=== PATIENT | male | born 1960 | race Two or more races ===

== ENCOUNTER 2020-10-18 09:22 | Emergency (ER) | payer BC, OTHER ==
[~2020-10-18] VITALS: Ht 185.4 cm; Wt 83.9 kg
[2020-10-18 10:13] VITALS: BP 130/88
== END 2020-10-18 11:07 | disposition home or self-care (01) ==
LOC: ER 09:22
DX: U07.1 COVID-19 (principal); E11.9 Type 2 diabetes mellitus without complications; I10 Essential (primary) hypertension

== ENCOUNTER 2024-07-01 12:17 | Emergency (ER) | payer BC ==
[~2024-07-01] VITALS: Ht 182.9 cm; Wt 72.0 kg
[2024-07-01] MEDS: SODIUM CHLORIDE 0.9% 1,000 ML IV ONE (12:30)
[2024-07-01 13:02] LABS: Basophils # (auto) 0.1 10 ^3/uL (0-0.2); Eosinophils # (auto) 0.2 10 ^3/uL (0-0.8); Eosinophils % (auto) 3.1 % (0.0-7.0); Hematocrit 38.9 % (41.0-53.0); Hemoglobin 13.6 g/dL (13.5-17.5); Lymphocytes # (auto) 1.1 10 ^3/uL (0.4-5.4); Lymphocytes % (auto) 18.5 % (10.0-50.0); Mean Corpuscular Hemoglobin 32.4 pg (28.0-32.0); Mean Corpuscular Hgb Conc. 34.9 g/dL (32.0-36.0); Mean Corpuscular Volume 92.7 fL (80.0-100.0); Monocytes # (auto) 0.4 10 ^3/uL (0-1.3); Neutrophils # (auto) 4.1 10 ^3/uL (1.6-8.6); Neutrophils % (auto) 70.4 % (37.0-80.0); Nucleated Red Blood Cells % 0.1 %; Platelet Count (auto) 187 10^3/uL (140-450); Red Cell Distribution Width 12.6 % (11.8-14.3); White Blood Cell 5.9 10^3/uL (4.4-10.8)
[2024-07-01 13:12] VITALS: BP 89/60; PULSE 94; RESP 18; TEMP 99; O2SAT 97
[2024-07-01 13:18] LABS: Anion Gap 9 (5-15); Carbon Dioxide 25 mmol/L (20-30); Chloride 99 mmol/L (98-107); Potassium 4.7 mmol/L (3.5-5.1); Sodium 133 mmol/L (136-145)
[2024-07-01 13:19] LABS: Calcium 9.4 mg/dL (8.7-10.4)
[2024-07-01 13:24] LABS: Blood Urea Nitrogen 25 mg/dL (9-23)
[2024-07-01] MEDS: InsuLIN REG 1unit/0.01ml Soln (100units/ml) IV ONE (13:25)
[2024-07-01 13:29] LABS: Glucose 560 mg/dL (74-106)
[2024-07-01 16:17] LABS: Urine Bacteria FEW /hpf (None Seen); Urine Blood Negative /uL (Negative); Urine Clarity Clear (Clear); Urine Color Light-Yellow (Yellow); Urine Protein, UAD 2+ (Negative); Urine Specific Gravity 1.027 (1.001-1.035); Urine Sperm PRESENT /hpf (None Seen); Urine Urobilinogen Normal (Negative); Urine WBC 1 /hpf (0 - 3); Urine pH 5.5 (5.0-9.0)
== END 2024-07-01 18:03 | disposition admitted as inpatient to this hospital (09) ==
LOC: ER 12:17
DX: E11.65 Type 2 diabetes mellitus with hyperglycemia (principal); I10 Essential (primary) hypertension
CPT/HCPCS: 36415; 71045; 80048; 81001; 82010; 82962; 84484; 85025; 93005; 96361; 96374; 99285; J1815; J7030